=== PATIENT | female | born 1980 | race Caucasian/White ===

== ENCOUNTER 2025-01-14 09:17 | Outpatient (AMB) | payer OTHER, SELFPAY ==
--- NOTE | 2025-01-14 09:19 | A.OFFVIS_ITS ---
Intake Visit Reasons: 6 mnts f/u for Ocular Migraine Allergies No Known Allergies Allergy (Verified 01/14/25 09:28) Medication List - Last Reconciled 01/14/25 by Dominique Maldonado CNP levetiracetam 500 mg PO BID 90 days HPI Comments Details: She had her first seizure in 2017 at the age of 36 at work. She was witnessed to suddenly fall from the chair and start twitching all over and was unresponsive for a couple of minutes and confused for a little while. She remembers waking up on the stretcher being transported to [facility]. She had a normal neurological workup and was discharged on no medications. The week prior to that seizure, she had used some acid and had been using cocaine during that week. After that, she had no further problems until 06/19/23 when she had a second seizure around 11 AM at home. Her boyfriend heard a thud and when he came in, he found her on the floor, stiff and shaking and had a slight lip bite on the right. It lasted less than a minute and was followed by a 5 min. period of confusion. She decided not to call the ambulance, but went to [facility] later and had a normal MRI of the brain and EKG. This episode happened after a night of drinking where she had been out and had 5 shots and 5 drinks and had come home drunk and woke up the next morning with a hangover. There is no previous history of seizures as a child. No history of head trauma. No family history of seizures. She was doing okay. No seizures. She was taking levetiracetam twice a day, no medication side effects. No headaches or occular migraines. Sleep was still not so good. Mood was okay. [facility] Medical History (Updated 01/14/25 @ 09:21 by Dominique Maldonado CNP) Ocular migraine Review of Systems Const Denies chills, Denies daytime sleepiness, Reports difficulty sleeping, Reports fatigue, Denies fever(s), Denies frequent falls, Denies headache(s), Denies increased appetite, Denies poor appetite, Denies snoring, Denies weakness, Denies weight gain and Denies weight loss Eyes Denies loss of vision ENT Denies vertigo, Denies dizziness, Denies headache(s) and Denies neck pain Card Denies chest pain at rest, Denies chest pain with activity, Denies syncope, Denies leg edema, Denies palpitations, Denies dyspnea and Denies dyspnea on exertion Resp Denies cough, Denies dyspnea, Denies dyspnea on exertion and Denies snoring GI Denies abdominal pain, Denies constipation, Denies heartburn, Denies diarrhea and Denies nausea Denies urinary frequency, Denies urinary incontinence and Denies urinary urgency Musc Denies abnormal gait, Denies back pain, Denies myalgias, Denies arthralgias, Denies neck pain, Denies numbness and Denies tingling Neuro Denies abnormal gait, Denies vertigo, Denies dizziness, Denies syncope, Denies frequent falls, Denies headache(s), Denies lack of coordination, Denies loss of vision, Denies memory loss, Denies numbness, Denies Other visual disturbances, Denies restless legs, Denies seizure-like activity, Denies tingling, Denies paresthesias, Denies tremor(s) and Denies weakness Psych Denies anxiety, Denies depression, Denies auditory hallucinations, Denies memory loss and Denies visual hallucinations Endo Reports fatigue and Denies palpitations Physical Exam Const Other: General Appearance:? normal, in no acute distress. Heart:? S1, S2 normal, no murmurs. Lungs:? clear anteriorly and posteriorly. Musculoskeletal:? normal. Extremities:? no edema. Psych:? alert, oriented, cognitive function intact, cooperative with exam. Neuro Other: Abnormal Neurological Findings:?none.? Mental Status: alert and oriented X 3. Normal attention, orientation, memory, and affect. Cranial Nerves: Pupils are equal, round, and reactive to light. External ocular muscles are intact. Visual tillman are full, no ptosis. Face is symmetrical, no facial weakness or droop. Facial sensations are normal. Tongue protrudes in midline. Palate elevates symmetrically. Shoulder shrugging is normal Motor Examination: Normal muscle tone, bulk and strength. No atrophy or fasciculations. No drift of the extended upper extremities. DTR 2+. Plantars are flexor. Sensory Exam: Normal light touch, temperature, pinprick, vibration, and joint- position sensations. Rhomberg sign is absent. Coordination: No ataxia. No titubation. Mbrqzm-mh-arog, fpso-rdtc-yclz test, and rapid alternating movements were normal. Gait Exam: Within normal limits. Cerebellar Signs: Uhxmlx-wa-wrdf and fxdo-yy-hnij is normal. No dysdiadochokinesia. Extrapyramidal System: No tremor, rigidity with normal facial expressions. No bradykinesia. No bradyphrenia. Normal arm swing and posture. No propulsion or retropulsion. Speech: Normal. No dysphasia or dysarthria. Results Reviewed Results Reviewed: 08/14/23 EEG-Sharp paroxysmal bursts of epileptiform discharges 2-4 secs with possible right hemisphere onset. 09/25/23 48 hr EEG shows frequent epileptiform discharges that are generalized and some originate in right hemisphere . They last 2-8 seconds. Assessment & Plan Assessment & Plan (1) Seizure disorder: Code(s): G40.909 - Epilepsy, unspecified, not intractable, without status epilepticus Category: Medical Plan: Continue levetiracetam 500mg 1 tablet twice a day. (2) Ocular migraine: Code(s): G43.109 - Migraine with aura, not intractable, without status migrainosus Category: Medical Plan . Coding Level of Care Code Est Pt Level 3 (46339) Diagnoses Seizure disorder G40.909 Ocular migraine G43.109
--- OUTSIDE RECORDS SUMMARY | 2025-01-14 10:21 | XMS_ITS | Clinical Summary ---
Author Organization [facility] [address] Address [address] [place] [address] Phone Care Team Providers Care Diving Instructor Name Role Phone Teressa Navarro MD Primary Care Provider Allergies No known active allergies Medications levETIRAcetam XR (KEPPRA XR) 500 mg 24 hr tablet Take 1 Tablet by mouth 2 times daily. Dx: seizure d/o Per neurology 10/31/19 24 Active levonorgestre L (Mirena) 21 mcg/24 hr (8 yrs) 52 mg IUD by Intrauterine route. Active polyethylene glycol (Gavilax) 17 gram/dose oral powder TAKE 17 GRAMS BY MOUTH ONCE EVERY DAY 510 g 12/22/19 25 Active tirzepatide, weight loss, (Zepbound) 10 mg/0.5 mL injectionIndi cations:Overw eight (BMI 25.0-29.9) Inject 0.5 mL (10 mg total) under the skin every 7 (seven) days. 2 mL 01/02/20 25 Active tirzepatide, weight loss, (Zepbound) 10 mg/0.5 mL injectionIndi cations:Overw eight (BMI 25.0-29.9) Inject 0.5 mL (10 mg total) under the skin every 7 (seven) days. 2 mL 11/18/19 25 025 Discontinued(R eorder) polyethylene glycol (MIRALAX) 17 gram packet Take 17 g by mouth 1 (one) time each day. 510 g 11/18/19 25 025 Discontinued Active Problems Problem Noted Date Diagnosed Date Overweight (BMI 25.0-29.9) 11/19/2024 Class 1 obesity without seri ous comorbidity with body mass index (BMI) of 31.0 to 31.9 in adult 06/05/2024 Atypical squamous cells karen ot exclude high grade squamous intraepithelial lesion on cytologic smear of cervix (ASC-H) 03/08/2022 Overview (03/03/2024): Colpo biopsies benign repeat pap in one year Encounters Date Type Department Care Team Description 12/11/2024 10:24 AM EDT - 12/11/2024 11:59 PM EDT [facility] [address] [phone] Breast asymmetry Discharge Disposition: Home or Self Care 11/19/2024 4:00 PM EDT Nutrition Bariatric Surgery - [address] [phone] Overweight (BMI 25.0-29.9) (Primary Dx) 11/17/2024 11:15 AM EDT Office Visit Bariatric Surgery [address] [phone] Gina Abdullahi PA Overweight (BMI 25.0-29.9) (Primary Dx) from Last 3 Months Immunizations Name Administration Dates Next Due Hep B, Unspecified 09/21/2010 Hepatitis B (Ubioqoy-C-Oxmww , Recombivax HB-Adult) 19yo and older 09/21/2010 MMR, measles mumps and rubel la Live (Priorix; M-M-R II) 12mo and older 09/21/2010 Surgical History Surgery Date Site/Laterality Comments OTHER SURGICAL HISTORY PROCEDURE: DENIES PREVIOUS SURGERY Medical History Medical History Date Comments Seizure (CMS/HCC V24, CMS/HCC V28) 02/26/2017 DX:Seizure (HCC) Family History Medical History Relation Name Comments Cancer of Small Bowel Father Prostate cancer Father at 65yr Stroke Father Hypertension Mother Also had uterin e CA, thyroid probs Other: stomach ulcer Mother Thyroid disease Mother Alzheimer's disease Paternal Grandmother Relation Name Status Comments Brother 1 Alive Brother 2 Alive Father Maternal Grandfather Maternal Grandmother Mother Alive Paternal Grandfather Paternal Grandmother Sister Alive Social History Tobacco Use Types Packs/Day Years Used Date Smoking Tobacco: Former Cigarettes 0.5 18.1 0 10/01/2001 - 10/26/2019 Smokeless Tobacco: Current Tobacco Cessation:Ready to Q uit: Not Asked; Counseling Given: Not Answered Alcohol Use Standard Drinks/Week Comments Yes 0 (1 standard drink = 0.6 oz pur e alcohol) Housing Instability Answer Date Recorde d Are you worried that in the next 2 months you may not have stable housing? No 04/13/2024 Food Access & Nutrition Answer Date Rec orded Do you have access to a vari ety of food including fruits and vegetables? Yes 04/13/2024 Access to Healthcare Answer Date Record ed Within the last 3 months, ho w many times did you visit the emergency department for your medical care? 0 04/13/2024 Health Literacy Answer Date Recorded How often do you need to hav e someone help you when you read instructions, pamphlets, or other written material from your doctor or pharmacy? Never 04/13/2024 Caregiver: How often do you need to have someone help you when you read instructions, pamphlets, or other written material from your doctor or pharmacy? Not on file 04/13/2024 Financial Risk Answer Date Recorded How hard is it for you to pa y for the very basics like food, housing, medical care, and air conditioning / heating? Not asked 04/13/2024 Transportation Answer Date Recorded Has the lack of transportati on kept you from meetings, work, or from getting things needed for daily living? No Has the lack of transportati on kept you from medical appointments or from getting medications? No 04/13/2024 Social Isolation Answer Date Recorded How often do you feel lonely or isolated from th ose around you? Never 04/13/2024 Food Risk Answer Date Recorded Within the past 12 months we worried whether our food would run out before we got money to buy more. Never true 04/13/2024 Within the past 12 months th e food we bought just didn't last and we didn't have money to get more. Never true 04/13/2024 Dependent Care Answer Date Recorded Do you need help finding or paying for care for your loved ones. For example, child care cook or elderly care for an older adult? No 04/13/2024 Education Answer Date Recorded Do you think completing more education or training, like finishing a GED, going to college, or learning a trade, would be helpful for you? N/A 04/13/2024 Employment and Income Answer Date Recor ded During the last four weeks, have you been actively looking for work? No 04/13/2024 Living Situation Answer Date Recorded What is your living situation? 1 06/13/2023 Comments No Sex and Gender Information Value Date Recorded Sex Assigned at Female 04/21/2024 12:05 PM EST Legal Sex Female 2:29 AM EST Gender Identity Female 04/21/2024 12:05 PM EST Sexual Orientation Straight 04/21/2024 12 :05 PM EST Obstetrics History Para Term AB IAB SAB Ectopic Multiple Livin g Live Births 0 0 0 0 Last Filed Vital Signs Vital Sign Reading Time Taken Comments Blood Pressure 120/85 11/17/2024 11:19 AM EDT Pulse 74 11/17/2024 11:19 AM EDT Temperature 36.5 C (97.7 F) 11/17/2024 11:19 AM EDT Respiratory Rate 16 08/24/2024 11:09 AM EDT Oxygen Saturation - - Inhaled Oxygen Concentration - - Weight 78 kg (172 lb) 12/11/2024 10:34 AM EDT Height 167.6 cm (5' 6 ) 12/11/2024 10:34 AM EDT Body Mass Index 27.76 12/11/2024 10:34 AM EDT Plan of Treatment Upcoming Encounters Date Type Department Care Team (Late st Contact Info) Description 03/16/2025 10:00 AM EDT Nutrition Bariatric Surgery - [place] [address] [phone] Margarita Villalpando, FELICIANO [address] [phone] 03/16/2025 11:00 AM EDT Office Visit Bariatric Surgery [facility] [address] [phone] Gina Abdullahi PA [address] [phone] 05/10/2025 1:00 PM EST Office Visit Adult Medicine - [place] [address] [place] [phone] Teressa Navarro MD [address] [place] [address] 06/15/2025 9:00 AM EST [facility]ointment [facility] [address] [phone] Health Maintenance Due Date Last Done Comments DTaP,Tdap,and Td Vaccines (1 - Tdap) 2001 Hepatitis B Vaccines (2 of 3 - 19+ 3-dose series) 10/19/2010 09/21/2010, 09/21/2010 HIV Screening 04/29/2022 Hepatitis C Screening 04/29/2022 COVID-19 Vaccine (3 - 2023-2 5 season) 2024 10/10/2020, 09/19/2020 Depression Screening 05/27/2024 04/13/2024 Hypertension/CHF/CAD Annual BMP Blood Test 10/30/2024 10/31/2023, 10/31/2023 Influenza Vaccine (#1) 2025 Social Influencers of Health Screening 04/13/2025 04/13/2024 Cholesterol Screening (Lipid Panel) 08/29/2026 08/29/2021 Breast Cancer Screening 12/11/2026 12/12/19 25, 06/04/2024, 05/04/2024 Cervical Cancer Screening: HPV 03/06/2027 03/06/2022 MMR Vaccines Aged Out 09/21/2010 No longer eligi ble based on patient's age to complete this topic HIB Vaccines Aged Out No longer eligi ble based on patient's age to complete this topic HPV Vaccines Aged Out No longer eligi ble based on patient's age to complete this topic Hepatitis A Vaccines Aged Out No long er eligible based on patient's age to complete this topic IPV Vaccines Aged Out No longer eligi ble based on patient's age to complete this topic Meningococcal ACWY Vaccine Aged Out N o longer eligible based on patient's age to complete this topic Meningococcal B Vaccine Aged Out No l onger eligible based on patient's age to complete this topic Pneumococcal Vaccine: Pediatrics (0 to 5 Years) and At-Risk Patients (6 to 49 Years) Aged Out No longer eligible b ased on patient's age to complete this topic RSV Immunization Patients Under 20 months Aged Out No longer eligible b ased on patient's age to complete this topic Varicella Vaccines Aged Out No longer eligible based on patient's age to complete this topic Procedures Procedure Name Priority Date/Time Associated Diagnosis Comments MG MAMMO DIGITAL DIAGNOSTIC W TU RIGHT Routine 12/11/2024 11:09 AM EDT Breast asymmetry ANNUAL BMP BLOOD TEST Routine 10/31/2023 HPV Routine 03/06/2022 LIPID PANEL Routine 08/29/2021 from Last 3 Months or Most Recently Relevant to Health Maintenance Results * MG Mammo Digital Diagnostic w Tu Right (12/11/2024 11:09 AM EDT) Anatomical Region Laterality Modality Breast Right Mammography 12/11/2024 10:3 8 AM EDT Impressions 12/11/2024 10:49 AM EDT The tissue asymmetry at the anterior 12:00 position of the right breast remains stable as compared to 06/04/2024 and considerably less prominent as compared to 05/04/2024, and this is therefore again favored to be benign. Bilateral mammography in 6 months, which will serve as additional short-term follow-up of the right breast and annual mammography of the left breast, is recommended. BI-RADS CATEGORY: 3 - PROBABLY BENIGN RECOMMENDATION: Short Interval Follow-up is recommended for bilateral breasts in 6 months. Mammo Location: [facility], [address] [place] [phone] [address] -------- FINAL REPORT -------- Dictated By: Narayan Jain Dictated Date: 12/11/2024 10:38 ET Assigned Physician: Narayan Jain Reviewed and Electronically Signed By: Narayan Jain Signed Date: 12/11/2024 10:49 ET Workstation ID: [id number] Transcribed By: Self Edit Transcribed Date: 12/11/2024 10:38 ET Narrative 12/11/2024 10:49 AM EDT CLINICAL: The patient is a 44 years Female. Baseline screening mammography performed 05/04/2024 demonstrated an equivocal asymmetry at the 12:00 position of the right breast. This became much less prominent with supplementary imaging include spot compression views performed 06/04/2024. The patient now presents for additional follow-up. COMPARISON: 06/04/2024 and 05/04/2024. TECHNIQUE: Full-field digital mammography of the breasts bilaterally consisting of tomosynthesis in MLO and CC projection is performed in the [employer] 2000-D unit. Computer aided detection utilizing the [employer] system was utilized. FINDINGS: The right breast is again seen to be composed of a combination of fatty and fibroglandular elements. The asymmetry at the anterior 12:00 position of the right breast remains stable in appearance as compared to the most recent prior study performed 06/04/2024 and considerably less prominent as compared to the preceding study performed 05/04/2024. No suspicious mass is demonstrated. There is no cluster of microcalcifications, skin thickening, or nipple retraction. Bilateral metallic nipple piercings are noted, new as compared to the prior study. TISSUE DENSITY: There are scattered areas of fibroglandular density. (BI-RADS category B) Procedure Note Narayan Jain MD - 12/11/2024 CLINICAL: The patient is a 44 years Female. Baseline screeningmammography performed 05/04/2024 demonstrated an equivocal asymmetry at the12:00 position of the right breast. This became much less prominent withsupplementary imaging include spot compression views performed 06/04/2024.The patient now presents for additional follow-up. COMPARISON: 06/04/2024 and 05/04/2024. TECHNIQUE: Full-field digital mammography of the breasts bilaterallyconsisting of tomosynthesis in MLO and CC projection is performed in the[employer] 2000-D unit. Computer aided detection utilizing the iCADsystem was utilized. FINDINGS: The right breast is again seen to be composed of a combinationof fatty and fibroglandular elements. The asymmetry at the anterior 12:00position of the right breast remains stable in appearance as compared tothe most recent prior study performed 06/04/2024 and considerably lessprominent as compared to the preceding study performed 05/04/2024. Nosuspicious mass is demonstrated. There is no cluster ofmicrocalcifications, skin thickening, or nipple retraction. Bilateral metallic nipple piercings are noted, new as compared to theprior study. TISSUE DENSITY: There are scattered areas of fibroglandular density.(BI-RADS category B) IMPRESSION: The tissue asymmetry at the anterior 12:00 position of the right breastremains stable as compared to 06/04/2024 and considerably less prominent ascompared to 05/04/2024, and this is therefore again favored to be benign.Bilateral mammography in 6 months, which will serve as additionalshort-term follow-up of the right breast and annual mammography of theleft breast, is recommended. BI-RADS CATEGORY: 3 - PROBABLY BENIGN RECOMMENDATION: Short Interval Follow-up is recommended for bilateral breasts in 6 months. Mammo Location: [facility], [facility], [address] [place] [phone] [address] -------- FINAL REPORT -------- Dictated By: Narayan Jain Dictated Date: 12/11/2024 10:38 ET Assigned Physician: Narayan Jain Reviewed and Electronically Signed By: Narayan Jain Signed Date: 12/11/2024 10:49 ET Workstation ID: [id number] Transcribed By: Self Edit Transcribed Date: 12/11/2024 10:38 ET Teressa Navarro MD IMG BI PROCEDURES Hiral l Result * Annual BMP Blood Test (10/31/2023) Annual BMP Blood Test abstracted Historical Provider HEALTH MAINTENANCE Final Result * Cervical Cancer Screening: HPV (03/06/2022) Cervical Cancer Screening: HPV negative, abstracted Historical Provider HEALTH MAINTENANCE Final Result * Lipid panel (08/29/2021) LDL/HDL Ratio 3 0 - 4 Triglycerides 78 0 - 150 mg/dL Cholesterol 184 0 - 200 mg/dL HDL 72 >=40 mg/dL LDL Cholesterol 97 0 - 100 mg/dL Blood Venous blood specimen / Unknown Historical Provider LAB BLOOD ORDERABLES Hiral l Result from Last 3 Months or Most Recently Relevant to Health Maintenance Insurance [facility] [employer] Care Teams Diving Instructor Relationship Specialty Start Date End Date Teressa Navarro MD [address] [place] [id number] PCP - General Internal Medicine 08/14/21
--- OUTSIDE RECORDS SUMMARY | 2025-01-14 10:21 | XMS_ITS ---
Author Name [facility] Organization Unknown Care Team Organization Name Specialty Phone Email Start Date End Da reyna [facility] Christopher Vaz Primary Care 04/03/2022
== END 2025-01-14 09:38 | disposition home or self-care (01) ==
LOC: HO.HSM 09:17
PROVIDERS: PCP Family Medicine; Visit Provider Registered Nurse
DX: G40.909 Epilepsy, unspecified, not intractable, without status epilepticus (principal); G43.109 Migraine with aura, not intractable, without status migrainosus
CPT/HCPCS: 99213

== ENCOUNTER → 2025-01-14 09:17 | Outpatient (BNVA) | payer OTHER, SELFPAY | PROVIDERS: PCP Family Medicine; Visit Provider Registered Nurse | DX: G43.109 Migraine with aura, not intractable, without status migrainosus (principal); G40.909 Epilepsy, unspecified, not intractable, without status epilepticus; Z79.899 Other long term (current) drug therapy | CPT/HCPCS: 99212 ==